=== PATIENT | female | born 1985 | race Caucasian/White ===

== ENCOUNTER 2019-08-17 09:58 | Outpatient (CLI) | payer MEDICAID ==
[~2019-08-17] VITALS: Ht 162.6 cm; Wt 108.6 kg
[~2019-08-17 09:58] MED LIST: ACHYD1T PO; CYCL10TA9 PO; DCS100C PO; HYDR-3720 PO; IBP200T PO; IBP800T PO; NITR-33 PO; OMEP-10 PO; PREN1TAB39 PO; TRIAM/HCTZ
[2019-08-17] MEDS ORDERED: MONT10TA21 PO (11:23)
[2019-08-17] MEDS ORDERED: CLON0.5T13 PO (11:58)
[2019-08-17] MEDS ORDERED: VORT10TA PO (11:58)
[2019-08-17] MEDS ORDERED: TRAZ-222 PO (11:58)
[2019-08-18] MEDS ORDERED: LEVO750T9 PO (09:48)
[2019-08-18] MEDS ORDERED: HYDR-34 PO (09:48)
[2019-08-18] MEDS ORDERED: ACHD5005 PO (11:19)
[2019-08-18] MEDS ORDERED: DOCU-143 PO (11:19)
== END 2019-08-17 12:01 | disposition home or self-care (01) ==
LOC: PREOP 09:58
PROVIDERS: ATTEND Surgery
DX: Z01.818 Encounter for other preprocedural examination (principal)

== ENCOUNTER 2019-08-18 08:54 | Day surgery (SDC) | payer MEDICAID ==
[~2019-08-18] VITALS: Ht 162.6 cm; Wt 108.6 kg
[2019-08-18] VITALS (10 sets, daily range): BP systolic 106–149; BP diastolic 61–98
[~2019-08-18 08:54] MED LIST changes: +CLON0.5T13 PO; +MONT10TA21 PO; +TRAZ-222 PO; +VORT10TA PO
[2019-08-18] MEDS ORDERED: metroNIDAZOLE 500MG/100ML IVPB 100 ML IV ONE (09:15)
[2019-08-18] MEDS ORDERED: ceFAZolin 2 GM IV Premixed 50 ML IV ONE (09:15)
[2019-08-18] MEDS ORDERED: ROCURONIUM 10 MG/ML 5 ML SYRINGE IV ONE (09:24)
[2019-08-18] MEDS ORDERED: proPOfol 200 MG/20 ML (DIPRIVAN) VIAL IV ONE (09:24)
[2019-08-18] MEDS ORDERED: DEXAMETHASONE 10 MG/ML (DECADRON) 1 ML VIAL ONE (09:24)
[2019-08-18] MEDS ORDERED: fentaNYL INJECTION 100 MCG/2 ML AMP ONE ×2 (09:24→10:51)
[2019-08-18] MEDS ORDERED: ONDANSETRON 4 MG/2 ML (SDV) Z0FRAN ONE (09:24)
[2019-08-18] MEDS ORDERED: MIDAZOLAM 2 MG/2 ML (VERSED) VIAL ONE (09:24)
[2019-08-18] MEDS ORDERED: LIDOCAINE PF 2% 5 ML (XYLOCAINE) VIAL ONE (09:24)
[2019-08-18] MEDS ORDERED: SEVOFLURANE (ULTANE) 15 ML INHAL SOLN ONE (09:24)
[2019-08-18] MEDS ORDERED: BUP/EPI 0.5% 1:200,000 (MARCAINE) 10ML VIAL IJ ONE (09:26)
[2019-08-18] MEDS ORDERED: IOPAMIDOL 61% 30 ML (ISOVUE 300) VIAL IV ONE (09:26)
[2019-08-18] MEDS: LACTATED RINGERS 1,000 ML IV PRN ×2 (09:27→11:17)
[2019-08-18] MEDS ORDERED: LEVO750T9 PO (09:48)
[2019-08-18] MEDS ORDERED: HYDR-34 PO (09:48)
[2019-08-18] MEDS ORDERED: HYDROmorphone 2 MG/ML VIAL (DILAUDID) ONE (10:27)
[2019-08-18] MEDS ORDERED: IOHEXOL 300 MG/ML 30 ML (OMNIPAQUE 300) VIAL INJ ONE (10:45)
[2019-08-18] MEDS ORDERED: NEOSTIGMINE 3 MG/3 ML VIAL ONE (10:49)
[2019-08-18] MEDS ORDERED: GLYCOPYRROLATE 0.2 MG/ML (ROBINUL) 2 ML VIAL ONE ×2 (10:49→11:00)
[2019-08-18] MEDS ORDERED: KETOROLAC 30 MG/ML VIAL ONE (10:56)
--- NOTE | 2019-08-18 11:05 | Diagnostic Imaging Report ---
INDICATION: Cholecystectomy Operative cholangiogram performed in routine fashion with injection via the cystic duct stump in surgery. Contrast fills the biliary tree. There are no filling defects in the common duct. Contrast passes to the duodenum without obstruction. 9 seconds of fluoroscopy time was used in surgery IMPRESSION: Unremarkable operative cholangiogram. Dictated by: Dictated on workstation # [id number]
--- NOTE | 2019-08-18 11:15 | Progress Note-Post Operative ---
Post-Operative Progess Note Surgeon (s)/Pl Sql Programmer (s) Surgeon JEREMY ISABEL DO Pl Sql Programmer: Dr. Barrett Pre-Operative Diagnosis symptomatic cholelithiasis Post-Operative Diagnosis same Procedure & Operative Findings Date of Procedure 08/18/19 Procedure Performed/Findings lap oh c ioc Anesthesia Type gen Estimated Blood Loss Estimated blood loss (mL): min Specimens/Packing Specimens Removed gallbladder JEREMY ISABEL DO Aug 18, 2019 11:15 POS
--- NOTE | 2019-08-18 11:15 | Progress Note-Pre Operative ---
Pre-Operative Progress Note H&P Reviewed The H&P was reviewed, patient examined and no changes noted. Date Seen by Provider: Aug 18, 2019 Time Seen by Provider: 09:33 Date H&P Reviewed: Aug 18, 2019 Time H&P Reviewed: 09:33 Pre-Operative Diagnosis: symptomatic cholelithiasis JEREMY ISABEL DO Aug 18, 2019 11:15 POS
[2019-08-18] MEDS ORDERED: ACHD5005 PO (11:19)
[2019-08-18] MEDS ORDERED: DOCU-143 PO (11:19)
--- NOTE | 2019-08-18 11:20 | Discharge Inst-Simple/Standard ---
Discharge Inst-Standard Discharge Medications New, Converted or Re-Newed RX: RX on Chart Patient Instructions/Follow Up Plan of Care/Instructions/FU: 2-3 weeks Yassine Activity as Tolerated: Yes Discharge Diet: Regular Diet Other Inst to Patient Follow up Appt: Make appointment for 2-3 weeks. Instructions: No lifting greater than 10 pounds. No strenuous activity. May shower in 24 hours, no tub bath or soaking. Use incentive spirometer at home as directed. No Smoking Skin/Wound Care: Special glue over incisions it will fall off on its own. Symptoms to Report: Appetite Changes, Extremity Discoloration, Numbness/Tingling, Swelling Increased, Bleeding Excessive, Eyesight Changes, Pain Increased, Urine Color Change, Constipation(Persistent), Fever over 101 degree F, Pain/Pressure in chest, Urinating Difficulty, Cough Up/Vomit Blood, Heart Beat Irreg/Pounding, Pain/Pressure in jaw, Vaginal Bleeding Increase, Cramps in feet or legs, Lightheadedness, Pain/Pressure in shoulder, Diarrhea(Persistent), Memory Changes Suddenly, Questions/Concerns, Weight gain consecutive days, Dizziness/Fainting, Nausea/Vomiting, Shortness of Breath, Weight gain over 2 pounds. If eyes or skin turn yellow notify physician. If questions or concerns contact your physician Or seek help at emergency department. JEREMY ISABEL DO Aug 18, 2019 11:20 POS
[2019-08-18] MEDS ORDERED: ONDANSETRON 4 MG/2 ML (SDV) Z0FRAN IVP PRN (11:30)
[2019-08-18] MEDS ORDERED: HYDROmorphone 2 MG/ML VIAL (DILAUDID) IV ONE (11:30)
--- NOTE | 2019-08-18 12:05 | Anesthesia-General Post-Op ---
General Patient Condition Mental Status/LOC: Same as Preop Cardiovascular: Satisfactory Nausea/Vomiting: Absent Respiratory: Satisfactory Pain: Controlled Complications: Absent Post Op Complications Complications None Follow Up Care/Instructions Patient Instructions None needed. Anesthesia/Patient Condition Patient Condition Patient is doing well, no complaints, stable vital signs, no apparent adverse anesthesia problems. No complications reported per nursing. D/C home per [facility] Criteria: Yes ROCCO GODWIN CRNA Aug 18, 2019 12:05 POS
--- NOTE | 2019-08-19 23:22 | OPERATIVE REPORT ---
DATE OF SERVICE: 08/18/2019 PREOPERATIVE DIAGNOSIS: Symptomatic cholelithiasis. POSTOPERATIVE DIAGNOSIS: Symptomatic cholelithiasis. PROCEDURE: Laparoscopic cholecystectomy with intraoperative cholangiogram. SURGEON: Jeremy Metzger DO EARLY CHILDHOOD LEAD TEACHER: Dr. Barrett, assisted in retraction, dissection and closure. ANESTHESIA: General. ESTIMATED BLOOD LOSS: Minimal. COMPLICATIONS: None. INDICATIONS: The patient is a 33-year-old female with symptomatic cholelithiasis. She understands risks and benefits of procedure and wished to proceed with procedure. Consent was signed in the chart. DESCRIPTION OF PROCEDURE: The patient was taken to the operating suite. She was prepped and draped in usual fashion. Timeout was performed. Local anesthetic was then infiltrated just above the umbilicus. The 11-blade scalpel was used to make a skin incision. Cautery was used to dissect down the fascia, which was then scored and elevated. The abdomen was then entered. A 0 Vicryl was placed in a [id number] fashion for closure at the end of the case. Balloon trocar was inserted. Pneumoperitoneum was achieved. Under direct visualization of the laparoscope, a 5 mm trocar was placed in the subxiphoid region and two 5 mm trocars were placed in the right upper quadrant. Gallbladder was grasped, elevated. Cystic duct and cystic artery were then dissected around. Clips were placed on the proximal and distal portion and the distal portion of the cystic duct. The duct was then partially transected. Arrow catheter was inserted and cholangiogram was performed. There were no filling defects. Contrast made its way into the duodenum without difficulty. Catheter was then removed. Clips were placed on the proximal portion of the cystic duct and the duct and the artery were then transected. Hook cautery was used to dissect the gallbladder from the gallbladder fossa achieving hemostasis. Once removed, it was placed in an Endobag and removed through 12 mm trocar site. The abdomen was then irrigated and suctioned with copious amounts of irrigation. Hemostasis was achieved. The trocars were removed. The 0 Vicryl that was placed at the beginning of the case was then tied closing the 12 mm fascial defect. The skin was then closed using 4-0 Monocryl in subcuticular fashion. The abdomen was then washed and dried and Skin Affix was placed over the incisions. The patient tolerated procedure well without any complications. She was taken to recovery room in stable condition. Job ID: [id number] DocumentID: [id number] Dictated Date: 08/19/2019 19:56:12 Gill Tender Date: 08/19/2019 23:20:38 Dictated By: JEREMY METZGER DO
== END 2019-08-18 13:35 | disposition home or self-care (01) ==
LOC: SDC 08:54
PROVIDERS: ATTEND Surgery
DX: K80.10 Calculus of gallbladder with chronic cholecystitis without obstruction (principal); K21.9 Gastro-esophageal reflux disease without esophagitis; F41.9 Anxiety disorder, unspecified; F32.9 Major depressive disorder, single episode, unspecified; Z88.5 Allergy status to narcotic agent; Z79.899 Other long term (current) drug therapy; Z87.891 Personal history of nicotine dependence; Z82.49 Family history of ischemic heart disease and other diseases of the circulatory system
CPT/HCPCS: 84703; 87081; 88304

== ENCOUNTER → 2023-08-18 | Outpatient (CLI) | payer BC ==
[~2023-08-18] VITALS: Ht 162.6 cm; Wt 126.4 kg
[~2023-08-18] MED LIST changes: +ACHD5005 PO; -CLON0.5T13 PO; +CLON0.5T4 PO; +DOCU-143 PO; +HYDR-34 PO; +LEVO750T9 PO; +LEVO75CA5 PO; +LISD40CA3 PO; +MEDR10TA9 PO; +MONT-47 PO; -MONT10TA21 PO; -TRAZ-222 PO; +TRZ50T PO
== END | disposition home or self-care (01) ==
LOC: PREOP 05:24
PROVIDERS: ATTEND Obstetrics & Gynecology
DX: Z01.818 Encounter for other preprocedural examination (principal)

== ENCOUNTER 2023-08-25 06:04 | Day surgery (SDC) | payer BC, MEDICAID ==
[2023-08-25] VITALS (11 sets, daily range): BP systolic 124–151; BP diastolic 75–92
[~2023-08-25] VITALS: Ht 162.6 cm; Wt 126.4 kg
[2023-08-25] MEDS ORDERED: ceFAZolin INJECTION 2,000 MG in NS (IVPB) 50 ML 50 ML IV ONE (06:30)
[2023-08-25 07:07] LABS: BASOPHILS # (AUTO) 0.1 10^3/uL (0.0-0.1); BASOPHILS % (AUTO) 0 % (0-10); EOSINOPHILS # (AUTO) 0.2 10^3/uL (0.0-0.3); EOSINOPHILS % (AUTO) 2 % (0-10); HEMATOCRIT 40 % (35-52); HEMOGLOBIN 13.1 g/dL (11.5-16.0); LYMPHOCYTES # (AUTO) 2.8 10^3/uL (1.0-4.0); LYMPHOCYTES % (AUTO) 25 % (12-44); MEAN CORPUSCULAR HEMOGLOBIN 28 pg (25-34); MEAN CORPUSCULAR HGB CONC 33 g/dL (32-36); MEAN CORPUSCULAR VOLUME 87 fL (80-99); MONOCYTES # (AUTO) 0.6 10^3/uL (0.0-1.0); MONOCYTES % (AUTO) 5 % (0-12); NEUTROPHILS # (AUTO) 7.5 10^3/uL (1.8-7.8); NEUTROPHILS % (AUTO) 67 % (42-75); PLATELET COUNT 354 10^3/uL (130-400); WHITE BLOOD COUNT 11.1 10^3/uL (4.3-11.0)
[2023-08-25] MEDS ORDERED: dexAMETHasone INJ 10 MG/ML 1 ML VIAL ONE (07:09)
[2023-08-25] MEDS: LACTATED RINGERS 1,000 ML 1,000 ML IV PRN ×2 (07:09→07:55)
[2023-08-25] MEDS ORDERED: proPOfol INJECTION 200 MG/20 ML VIAL IV ONE (07:09)
[2023-08-25] MEDS ORDERED: LIDOCAINE PF 2% 5 ML VIAL ONE (07:09)
[2023-08-25] MEDS ORDERED: ONDANSETRON INJECTION 4 MG/2 ML (SDV) ONE ×2 (07:09→10:04)
[2023-08-25] MEDS ORDERED: fentaNYL INJECTION 100 MCG/2 ML VIAL ONE ×2 (07:09→09:35)
[2023-08-25] MEDS ORDERED: MIDAZOLAM INJ 2 MG/2 ML VIAL ONE (07:11)
--- NOTE | 2023-08-25 07:11 | Progress Note-Pre Operative ---
Pre-Operative Progress Note Date H&P Reviewed: Aug 25, 2023 Time H&P Reviewed: 07:10 History & Physical: H&P Reviewed, No changes noted Pre-Operative Diagnosis: AUB uterine enlargement Plan KEHINDE webster. BSO NILAY HILL DO Aug 25, 2023 07:11
[2023-08-25] MEDS ORDERED: NALOXONE 0.4 MG/ML 1 ML VIAL IV PRN (07:15)
[2023-08-25] MEDS ORDERED: BUPIVACAINE 0.25% 30 ML VIAL ONE (07:15)
[2023-08-25] MEDS ORDERED: morphine INJ 4 MG/ML 1 ML (VIAL/SYRINGE) IV PRN (07:15)
[2023-08-25] MEDS ORDERED: D5 LR 1,000 ML IV SOLN 1,000 ML IV SCH (07:15)
[2023-08-25] MEDS ORDERED: oxyCODONE IMMEDIATE RELEASE 5 MG TABLET PO PRN (07:15)
[2023-08-25] MEDS ORDERED: ACETAMINOPHEN 500 MG TABLET PO SCH (07:15)
[2023-08-25] MEDS ORDERED: BENZOCAINE/MENTHOL (DERMOPLAST) 56 ML CAN TP PRN (07:15)
[2023-08-25] MEDS ORDERED: METOCLOPRAMIDE INJ 10 MG/2 ML IV PRN (07:15)
--- NOTE | 2023-08-25 07:16 | OB/GYN Operative Report ---
Operative Report Date of Procedure:Aug 25, 2023 Preoperative Diagnosis: AUB uterine enlargement Postoperative Diagnosis: Abnormal uterine bleeding, uterine enlargement, omental and colon adhesions Name of the Procedure: Robotic assisted total laparoscopic hysterectomy with bilateral salpingectomy, lysis of adhesions and cystoscopy Surgeon: Shraddha Hill Promotional Representative(s): Anesthesia:General ETA Indications for Procedure: Patient is a 37-year-old female who presented for abnormal uterine bleeding that has failed medical therapy including OCPs, progesterone and IUD. She had family status was complete and patient elected to proceed to a hysterectomy. We discussed the risk benefits and alternatives in detail with her and patient verbalized understanding signed consents and is ready to proceed. Findings of the Procedure: [] Complications: None Disposition: nCounts correct x 2 patient taken to recovery room in stable condition. Description of the Procedure: Informed consent was obtained and signed patient was taken to the OR [facility]. 2 placed under general endotracheal anesthesia placed in the dorsolithotomy position prepped and draped usual sterile fashion. A timeout was performed. A pelvic exam under anesthesia revealed a slightly enlarged uterus no adnexal masses and it was midline. A weighted speculum was placed into the posterior vaginal vault and a Somers catheter was inserted into the urinary bladder. A single-tooth tenaculum was used to grasp the anterior lip of the cervix. Uterus sounded to 8 cm and a small Olivia manipulator was then inserted into the uterine cavity. The single-tooth and weighted speculum were then removed. The balloon in the cavity of the uterus was then blown up and attention was then paid to the abdomen. On the abdomen it was marked about 2 cm superior to the umbilicus and then 8 to 10 cm to the left and to the right and is well as 1 in the right lower quadrant. These areas were injected with quarter percent plain Marcaine and a small supraumbilical incision was made where I placed my bruno used a Veress needle in serted into the abdominal cavity and insufflated using carbon oxide gas. Once we reached a pressure of 14 my robotic trocar was then inserted under direct visualization. The lateral ports were then placed after making my incisions there. First the left and then the 2 right ports were placed under direct visualization. Once my ports were placed the robot arms were then positioned over the patient's body and the patient was placed in a 27 degree Trendelenburg position. The robot arm 3 was used to engage into the endoscope port the laparoscope was then inserted and targeting commenced. Once targeting was complete the other robotic arms were then docked to the lateral ports. So arms 2 and 4 were placed for the lateral ports. Once these were docked the vessel sealer was placed in arm 2 and the monopolar scissors was placed in arm 4. These were visualized with the robotic camera to place into the visualization so that we could continue. Once these were placed and the arms were positioned, I then disgowned and proceeded to the surgeon console. Once that the surgeon console, there was omental adhesions to the anterior abdominal wall and these were brought down with the vessel sealer and the monopolar scissors. The uterus was lifted upward both ovaries were identified the right ovary appeared to be normal the left ovary had a simple cyst and there were some adhesions of the colon on the left side that prevented us from seeing the entirety of the fallopian tube. There is also a paratubal cyst there as well. Using my assistance grasper the bowel was moved out of the way and there were some adhesions along the left sidewall to the colon. These were gently removed using the monopolar scissors. Once this was done I was able to see where the fallopian tube was using the bipolar grasper and the vessel sealer I removed the adhesions of the fallopian tube and the paratubal cyst. Once I was able to free that up I then cauterized and incised using the vessel sealer along the mesosalpinx. The bipolar arm was then removed and the monopolar scissors were placed back and side. I looked for my ureters both ureters were seen with peristalsing and away from where I was working. I then proceeded to the right side where the right fallopian tube was grasped and the assistant engineer grasper was removed to allow for visualization. The mesosalpinx was cauterized and incised along the fallopian tube to the proximal end the ovarian ligament was cauterized and incised and then the round ligament was cauterized and incised using the vessel sealer and the anterior posterior leaves of the broad ligament were and were cauterized and incised using the monopolar scissors. The anterior posterior leaves of the broad ligament were and then the pedicles along the right side were cauterized and incised using the vessel sealer to just above the uterine arteries. Then I proceeded to the left side where in similar fashion I continued to across the ovarian ligament with the vessel sealer the round ligament the anterior posterior leaves of the broad ligament with my monopolar scissors and then created my bladder flap on the anterior side and reflected the bladder off of the cervix. Once this was done and I was able to see my cervix readily we then blew up the vaginal occlu blue balloon. Once this was done I used my monopolar scissors to incise around the cervix to create my vaginal cuff. When I got to where the uterine arteries were I used a vessel sealer to cauterize and incise first on the left and then on the right. I then continued around to the posterior side and removed the cervix from the vaginal cuff. Once this was done the uterus and fallopian tubes were removed and the vagina was occluded with a lap sponge. The vaginal cuff was then reapproximated using oh the locking suture in a running fashion and imbricated including the bladder flap for excellent hemostasis. The pelvic area was inspected and was noted to be hemostatic and the area was irrigated confirming hemostasis. We then removed all of our robotic instruments and undocked the robot arms. We then placed Floseal over the vaginal cuff and the ports were removed under direct visualization. As much of the carbon oxide gas was allowed to escape as possible. The incisions were reapproximated using 3-0 Monocryl in a subcuticular fashion and then sealed with Dermabond. We then proceeded to the perineum where we removed the Somers catheter and performed a cystoscopy. The bladder was noted to be intact and both ureters were seen with urine peristalsing from them. The cystoscope was then removed the Somers catheter was placed back inside and the patient was taken to recovery room in stable condition. All of the counts were correct x 2 EBL was 50 cc, fluids were 2000 cc and urine output was 200 cc. SHRADDHA IHLL DO Aug 25, 2023 07:16
[2023-08-25] MEDS: BUPIVACAINE 0.25% 30 ML VIAL INJ ONE (07:53)
[2023-08-25] MEDS ORDERED: ROCURONIUM 50 MG/5 ML VIAL IV ONE (09:23)
[2023-08-25] MEDS ORDERED: SEVOFLURANE (ULTANE) 15 ML INHAL SOLN ONE (09:27)
[2023-08-25] MEDS ORDERED: SUGAMMADEX INJ 100 MG/ML 5 ML VIAL IV ONE ×2 (09:27→09:39)
[2023-08-25] MEDS ORDERED: KETOROLAC INJ 30 MG/ML VIAL ONE (09:54)
--- NOTE | 2023-08-25 09:55 | Anesthesia-General Post-Op ---
General Patient Condition Mental Status/LOC: Same as Preop Cardiovascular: Satisfactory Nausea/Vomiting: Absent Respiratory: Satisfactory Pain: Controlled Complications: Absent Post Op Complications Complications None Follow Up Care/Instructions Patient Instructions None needed. Anesthesia/Patient Condition Patient Condition Patient is doing well, no complaints, stable vital signs, no apparent adverse anesthesia problems. No complications reported per nursing. SABINE RICHTER CRNA Aug 25, 2023 09:55
[2023-08-25] MEDS: KETOROLAC INJ 30 MG/ML VIAL IV SCH ×2 (09:58→15:49)
[2023-08-25] MEDS ORDERED: ONDANSETRON INJECTION 4 MG/2 ML (SDV) IVP PRN (10:00)
[2023-08-25] MEDS ORDERED: HYDROmorphone INJECTION 2 MG/ML VIAL IV ONE (10:00)
[2023-08-25] MEDS ORDERED: HYDROmorphone INJECTION 2 MG/ML VIAL ONE (10:03)
[2023-08-25] MEDS ORDERED: IBUP-844 PO (10:16)
[2023-08-25] MEDS ORDERED: DOCU100C37 PO (10:16)
[2023-08-25] MEDS ORDERED: OXC5T PO (10:16)
--- NOTE | 2023-08-25 10:18 | Discharge Summary ---
Discharge Summary Hospital Course Problems Reviewed?: Yes Hospital Course Date of Admission: Admission Diagnosis : Family Physician/Provider: Belinda Darnell Date of Discharge: 08/25/23 Discharge Diagnosis:Status post robotic assisted total laparoscopic hysterectomy with bilateral salpingectomy lysis of adhesions and cystoscopy Hospital Course: Patient was admitted for robotic assisted total laparoscopic hysterectomy with bilateral salpingectomy and during the case it was noted that she had omental and bowel adhesions which were lysed. She did very well throughout the procedure and postoperatively she continued to do well she was able to ambulate, urinate on her own and tolerate a diet. She was discharged home later that evening with pain medications and instructions Labs and Pending Lab Test: Laboratory Tests 08/25/23 06:30: White Blood Count 11.1H, Red Blood Count 4.64, Hemoglobin 13.1, Hematocrit 40, Mean Corpuscular Volume 87, Mean Corpuscular Hemoglobin 28, Mean Corpuscular Hemoglobin Concent 33, Red Cell Distribution Width 13.5, Platelet Count 354, Mean Platelet Volume 10.0, Immature Granulocyte % (Auto) 0, Neutrophils (%) (Auto) 67, Lymphocytes (%) (Auto) 25, Monocytes (%) (Auto) 5, Eosinophils (%) (Auto) 2, Basophils (%) (Auto) 0, Neutrophils # (Auto) 7.5, Lymphocytes # (Auto) 2.8, Monocytes # (Auto) 0.6, Eosinophils # (Auto) 0.2, Basophils # (Auto) 0.1, Immature Granulocyte # (Auto) 0.0 Home Meds Active Docusate Sodium 100 Mg Capsule 100 Mg PO BID Take 1 tablet twice a day Oxyir Tablet (Oxycodone HCl) 5 Mg Tab 5 Mg PO Q4HR PRN Take 1 tablet every 4 hours as needed for pain Ibu (Ibuprofen) 600 Mg Tablet 600 Mg PO Q6H Take 1 tablet every 6 hours as needed for pain Reported Medroxyprogesterone Acetate 10 Mg Tablet 10 Mg PO Vyvanse (Lisdexamfetamine Dimesylate) 40 Mg Capsule 40 Mg PO 7 Days Levothyroxine (Levothyroxine Sodium) 75 Mcg Capsule 75 Mcg PO Trazodone HCl 50 Mg Tablet 50 Mg PO HS Clonazepam 0.5 Mg Tablet 0.5 Mg PO TID PRN Trintellix (Vortioxetine Hydrobromide) Unknown Strength Tablet 1 Tab PO DAILY Singulair (Montelukast Sodium) 10 Mg Tablet 10 Mg PO DAILY Patient Discharge Instructions Follow-up in 1 week Activity: Activity as Tolerated Driving Instructions: No Driving for 1 Week NO SMOKING: NO SMOKING Nothing Inside Vagina: No Douching, No [place], No Tampons Discharge Diet: Regular Diet Symptoms to Report to : Pain Increased, Constipation(Persistant), Fever Over 101 Degrees F, Pain/Pressure in Chest, Vaginal Bleeding Increase, Vaginal Discharge Foul, Nausea/Vomiting, Shortness of Breath For Any Problems or Questions: Go to Emergency Room Infection Signs and Symptoms: Increased Redness, Foul Odor of Wound, Increased Drainage, Skin Itchy or Has a Rash, Increased Swelling, Temperature Above 101 F Operative Area Clean and Dry: Keep Incision Clean/Dry Stitches/Zhane/Dermabond: Dermabond Discharge Physical Examination Allergies: Coded Allergies: codeine (Unverified Adverse Reaction, Mild, 08/18/19) Vitals & I&Os Vital Signs Date Time Temp Pulse Resp B/P (MAP) Pulse Ox O2 Delivery O2 Flow Rate FiO2 08/25/23 06:15 36.2 102 20 125/85 (98) 98 Room Air Discharge Summary Date of Admission Date of Discharge Supervisory-Addendum Brief Verification & Attestation Participated in pt care: history, MDM, physical Personally performed: exam, history, MDM, supervision of care Care discussed with: Medical Student Procedures: n/a Results interpretation: Verified all documentation I personally saw and examined this patient. NILAY IHLL DO Aug 25, 2023 10:18
[2023-08-25] MEDS ORDERED: ENOXAPARIN 40 MG/0.4 ML SYRINGE SC SCH (11:02)
[2023-08-26] MEDS ORDERED: IBUPROFEN 600 MG TABLET PO SCH (07:15)
[2023-08-26] MEDS ORDERED: DOCUSATE SODIUM 100 MG CAPSULE PO SCH (09:00)
== END 2023-08-25 17:30 | disposition home or self-care (01) ==
LOC: SDC 06:04 → WS 10:20 → SDC 17:30
PROVIDERS: ATTEND Obstetrics & Gynecology
DX: N85.2 Hypertrophy of uterus (principal); N39.9 Disorder of urinary system, unspecified; K56.50 Intestinal adhesions [bands], unspecified as to partial versus complete obstruction; N94.6 Dysmenorrhea, unspecified; N83.8 Other noninflammatory disorders of ovary, fallopian tube and broad ligament; E66.01 Morbid (severe) obesity due to excess calories; F17.210 Nicotine dependence, cigarettes, uncomplicated; Z68.42 Body mass index [BMI] 45.0-49.9, adult
CPT/HCPCS: 36415; 84703; 85025; 86850; 86900; 86901; 87081; 88307